=== PATIENT | female | born 1990 | race Caucasian/White ===

== ENCOUNTER 2017-11-12 05:52 | Day surgery (SDC) | payer OTHER, BC ==
[~2017-11-12 05:52] MED LIST: VERSED IV NR
--- NOTE | 2017-11-12 06:42 | Anesthesia Consultation ---
Anesthesia Consult and Med Hx Date of service: 11/12/17 - Airway Anesthetic Teeth Evaluation: Good ROM Head & Neck: Adequate Mental/Hyoid Distance: Adequate Mallampati Class: Class II Intubation Access Assessment: Good - Pulmonary Exam CTA: Yes - Cardiac Exam Cardiac Exam: RRR - Pre-Operative Health Status ASA Pre-Surgery Classification: ASA1 Proposed Anesthetic Plan: General - Pulmonary Hx Asthma: Yes (as a child) - Central Nervous System Hx Psychiatric Problems: No - Other Systems Hx Cancer: No
--- NOTE | 2017-11-12 06:42 | Anesthesia Day of Surgery ---
Anesthesia Day of Surgery - Day of Surgery Patient Examined: Yes Patient H&P Reviewed: Yes Patient is NPO: Yes
[2017-11-12] MEDS ORDERED: PERCOCET 5/325 PO PRN (06:43)
[2017-11-12] MEDS ORDERED: MORPHINE IV PRN (06:43)
[2017-11-12] MEDS ORDERED: ZOFRAN IV PRN (06:43)
[2017-11-12] MEDS ORDERED: NACL BACTERIOSTATIC INFILTRATI ONE (06:47)
[2017-11-12] MEDS ORDERED: NACL 0.9% 1000 ML 1,000 ML IV SCH (07:00)
[2017-11-12] MEDS ORDERED: PEPCID PO NR (07:00)
[2017-11-12] MEDS ORDERED: VERSED IV NR (07:00)
[2017-11-12] MEDS ORDERED: LACTATED RINGERS 1,000 ML IV SCH (07:00)
[2017-11-12] MEDS ORDERED: MONSEL'S TP ONE (07:11)
[2017-11-12] MEDS ORDERED: XYLOCAINE 1% 20 mL ONE (07:11)
[2017-11-12] MEDS ORDERED: XYLOCAINE 2%/ EPI 1:200,000 INFILTRATI ONE ×2 (07:12→08:26)
[2017-11-12] MEDS ORDERED: ACETIC ACID 3% SOLN TP ONE (07:12)
[2017-11-12] MEDS ORDERED: LUGOL'S SOLUTION 5% TP ONE ×2 (07:12→08:19)
[2017-11-12] MEDS ORDERED: ZOFRAN ONE (07:37)
[2017-11-12] MEDS ORDERED: DIPRIVAN 10 MG/ML IV ONE (07:37)
[2017-11-12] MEDS ORDERED: SUBLIMAZE ONE (07:37)
[2017-11-12] MEDS ORDERED: XYLOCAINE MPF 2% ONE (07:37)
[2017-11-12] MEDS ORDERED: REGLAN ONE (07:37)
--- NOTE | 2017-11-12 07:56 | Short Stay Summary ---
Short Stay Documentation Date of service: 11/12/17 Narrative H&P: HGSIL - History H&P: obtained from office Past Medical History: No medical history Past Surgical History: No surgical history Social history: single - Allergies and Medications Current Medications: Allergies No Known Allergies Allergy (Unverified 11/05/17 19:21) Home Medications Medication Instructions Recorded Confirmed Last Taken Type Norgestimate-Ethinyl Estradiol 1 each PO HS 11/05/17 11/12/17 11/11/17 History [Rnl-[id number] Tablet] Active Medications Cefazolin Sodium (Ancef/Sterile Water 2 Gm/20 Ml) 2 gm IV PREOP NR Stop: 11/12/17 23:59 Famotidine (Pepcid) 20 mg PO PREOP NR Stop: 11/12/17 23:59 Last Admin: 11/12/17 06:52 Dose: 20 mg Lactated Ringer's (Lactated Ringers) 1,000 mls @ 100 mls/hr IV DIRECT MAIKEL Last Admin: 11/12/17 07:00 Dose: 100 mls/hr Midazolam HCl (Versed) 2 mg IV PREOP NR Stop: 11/12/17 23:59 Last Admin: 11/12/17 07:01 Dose: 2 mg Morphine Sulfate (Morphine) 2 mg IV Q10MIN PRN PRN Reason: Pain, Moderate (4-6) Stop: 11/12/17 18:00 Ondansetron HCl (Zofran) 4 mg IV ONCE PRN PRN Reason: Nausea And Vomiting Stop: 11/12/17 18:00 Oxycodone/Acetaminophen (Percocet 5/325) 1 tab PO ONCE PRN PRN Reason: Pain, Moderate (4-6) Stop: 11/12/17 18:00 - Physical exam General appearance: no acute distress Integumentary: no rash Lungs: Clear to auscultation, Normal air movement Heart: Regular rate, Normal S1, Normal S2 Gastrointestinal: normal, normoactive bowel sounds Female Genitourinary: deferred Rectal Exam: deferred Extremities: no ischemia, No edema - Brief post op/procedure progress note Date of procedure: 11/12/17 Pre-op diagnosis: HSIL Post-op diagnosis: same Procedure: LEEP Anesthesia: MAC Findings: area of irregular cervical tissue after placement of Lugols solution Surgeon: VON PEREZ Estimated blood loss: 50-100ml Pathology: list (portion of endo and exo-cervix) Specimen disposition: to lab Condition: stable - Hospital course Hospital course: unremarkable - Disposition Condition at discharge: Good Disposition: DC- TO HOME OR SELFCARE Short Stay Discharge Plan Activity: advance as tolerated Weight Bearing Status: Weight Bear as Tolerated Diet: regular Wound: open to air Follow up with: VON PEREZ MD [Staff Physician] - 14 Days Prescriptions: HYDROcodone/ACETAMINOPHEN [Melvin 7.5-325 Tablet] 1 each PO Q6H #30 tablet Ibuprofen [Motrin] 800 mg PO Q8HR PRN #40 tablet PRN Reason: Pain
[2017-11-12] MEDS ORDERED: ANCEF/STERILE WATER 2 GM/20 ML IV NR (08:00)
[2017-11-12] MEDS ORDERED: XYLOCAINE 2%/EPI 1:100,000 INFILTRATI ONE (08:18)
[2017-11-12] MEDS ORDERED: NACL 0.9% 1000 ML 1,000 ML ONE (08:33)
[2017-11-12] MEDS ORDERED: TORADOL IV NR (09:30)
--- NOTE | 2017-11-12 09:54 | Post Anesthesia Evaluation ---
- Post Anesthesia Evaluation Patient Participated: Yes Airway Patent: Yes Stable Respiratory Function: Yes Temp > 96.8F: Yes Pain Manageable: Yes Adequeate Hydration: Yes Anesthesia Complications: No
[2017-11-12 11:57] VITALS: BP 132/78
--- NOTE | 2017-12-09 08:16 | Operative Report ---
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 PROCEDURE: LEEP. SURGEON: Jasmyne Norris MD. ANESTHESIA: LMA. IV FLUIDS: 800 mL. ESTIMATED BLOOD LOSS: Minimal. COMPLICATIONS: None. SPECIMENS: Portions of endo and ectocervix. DESCRIPTION OF PROCEDURE: The patient was taken to the OR with IV running in place. She was given anesthesia without difficulty. She was then placed in the dorsal lithotomy position and prepped and draped in normal sterile fashion. Attention was then turned to the patient's vagina. The bladder was drained of approximately 100 mL of clear yellow urine. A speculum was then placed into the patient's vagina. Cervix was visualized and grasped with a single tooth tenaculum. Cervix was then injected with Marcaine with epinephrine at the 10, 2, 4 and 8 o'clock positions. Following this, Lugol solution was placed on the cervix to elucidate any areas of concern. Once this was done using the loop electrocautery, the portion of the endo and ectocervix was removed. They were handed off to pathology. Following this, the base of the cervix was cauterized with a roller ball cautery until there was excellent hemostasis noted. Silver nitrates were also applied within the areas of continued bleeding. Once there was good hemostasis, all instruments were removed from the patient's vagina. She was then awakened and taken to the recovery in stable condition. Sponge, needle, and instrument counts were correct x 2. The patient tolerated the procedure well. JOB# [id number] JESUS/MELISA
== END 2017-11-12 10:25 | disposition home or self-care (01) ==
LOC: OR 05:52
PROVIDERS: ATTEND Obstetrics & Gynecology
DX: D06.0 Carcinoma in situ of endocervix (principal); J45.909 Unspecified asthma, uncomplicated
CPT/HCPCS: 57522; 81025; 88305; 88341; 88342; J0690; J1885; J2250; J2270; J2405; J2704; J2765; J3010; J7030; J7120; 88307